=== PATIENT | female | born 1945 | race Caucasian/White ===

== ENCOUNTER 2025-01-06 11:09 | Outpatient (AMB) | payer MEDICARE, SELFPAY ==
--- OUTSIDE RECORDS SUMMARY | 2025-01-06 12:30 | XMS_ITS | Clinical Summary ---
Author Organization [facility] Address [address] [place] [address] Care Team Providers Care It Analyst Name Role Phone Unavailable Primary Care Provider Unavailabl e Surgical History Surgery Date Site/Laterality Comments CHOLECYSTECTOMY 03/23/2014 PROCEDURE: LAPAROSCOPY, CHOLECYSTECTOMY; COMMENT: Pierce-Genaro KNEE ARTHROSCOPY PROCEDURE: NM ARTHROSCOPY KNEE DIAGNOSTIC W/WO SYNOVIAL BX SPX Family History Medical History Relation Name Comments Other: Other Daughter 3 daughters Stomach cancer Father Stroke Father Parkinson's Disease Mother Other: Other Son 1 son Relation Name Status Comments Daughter Alive Father Mother Son Alive Social History Tobacco Use Types Packs/Day Years Used Date Smoking Tobacco: Never Smokeless Tobacco: Never Alcohol Use Standard Drinks/Week Comments Yes 0 (1 standard drink = 0.6 oz pur e alcohol) Comments Unknown Sex and Gender Information Value Date Recorded Sex Assigned at Not on file Legal Sex Female 3:52 PM EST Gender Identity Not on file Sexual Orientation Not on file Obstetrics History Plan of Treatment Health Maintenance Due Date Last Done Comments Diabetes: Annual GFR (Glomerular Filtration Rate) 1946 Diabetes: Annual Foot Exam 1956 Diabetes: Annual Retina Eye Exam 1956 Pneumococcal Vaccine: 50+ Years (1 of 1 - PCV) 1996 RSV Immunization Adult Patients (1 - 1-dose 75+ series) 2021 Cholesterol Screening (Lipid Panel) 04/13/2022 Falls Risk Assessment 04/13/2022 Hepatitis C Screening 04/13/2022 Osteoporosis Screening (Bone Density Screening) 04/13/2022 Social Influencers of Health Screening 04/13/2022 Diabetes: Annual Urine Albumin-Creatinine Ratio (uACR) 04/21/2022 Diabetes: Blood Sugar Contro l Test (HGBA1C) 04/21/2022 Hypertension/CHF/CAD Annual BMP Blood Test 04/21/2022 COVID-19 Vaccine (1 - 2023-2 5 season) 2024 Depression Screening 05/15/2024 Influenza Vaccine (#1) 2025 12/31/2019 DTaP,Tdap,and Td Vaccines (2 - Td or Tdap) 10/14/2027 10/13/2017 Zoster Vaccines Completed 05/01/2019, 07/30/2018 HIB Vaccines Aged Out No longer eligi ble based on patient's age to complete this topic HPV Vaccines Aged Out No longer eligi ble based on patient's age to complete this topic Hepatitis A Vaccines Aged Out No long er eligible based on patient's age to complete this topic Hepatitis B Vaccines Aged Out No long er eligible based on patient's age to complete this topic IPV Vaccines Aged Out No longer eligi ble based on patient's age to complete this topic MMR Vaccines Aged Out No longer eligi ble based on patient's age to complete this topic Meningococcal ACWY Vaccine Aged Out N o longer eligible based on patient's age to complete this topic Meningococcal B Vaccine Aged Out No l onger eligible based on patient's age to complete this topic RSV Immunization Patients Under 20 months Aged Out No longer eligible b ased on patient's age to complete this topic Varicella Vaccines Aged Out No longer eligible based on patient's age to complete this topic
== END 2025-01-06 15:19 | disposition home or self-care (01) ==
LOC: HO.HMGAL 11:09
PROVIDERS: PCP Internal Medicine; Visit Provider Registered Nurse Emergency
DX: J30.89 Other allergic rhinitis (principal)
CPT/HCPCS: 95117; 95165

== ENCOUNTER 2025-01-22 09:46 | Outpatient (AMB) | payer MEDICARE, SELFPAY | END 2025-01-22 09:50 | disposition home or self-care (01) | LOC: HO.HMGAL 09:46 | PROVIDERS: PCP Internal Medicine; Visit Provider Registered Nurse Emergency | DX: J30.89 Other allergic rhinitis (principal) | CPT/HCPCS: 95117; 95165 ==

== ENCOUNTER 2025-02-19 11:14 | Outpatient (AMB) | payer MEDICARE, SELFPAY | END 2025-02-19 11:14 | disposition home or self-care (01) | LOC: HO.HMGAL 11:14 | PROVIDERS: PCP Internal Medicine Sports Medicine; Visit Provider Registered Nurse Emergency | DX: J30.89 Other allergic rhinitis (principal) | CPT/HCPCS: 95117; 95165 ==

== ENCOUNTER 2025-03-05 09:48 | Outpatient (AMB) | payer MEDICARE, SELFPAY ==
--- OUTSIDE RECORDS SUMMARY | 2025-03-05 11:36 | XMS_ITS | Clinical Summary ---
Author Organization [facility] Address [address] [place] [address] Care Team Providers Care Junior Engineer Name Role Phone Unavailable Primary Care Provider Unavailabl e Surgical History Surgery Date Site/Laterality Comments CHOLECYSTECTOMY 03/23/2014 PROCEDURE: LAPAROSCOPY, CHOLECYSTECTOMY; COMMENT: Radha KNEE ARTHROSCOPY [id number] PROCEDURE: ME ARTHROSCOPY KNEE DIAGNOSTIC W/WO SYNOVIAL BX SPX [...] Health Maintenance Due Date Last Done Comments Pneumococcal Vaccine: 50+ Years (1 of 1 - PCV) 1996 RSV Immunization Adult Patients (1 - 1-dose 75+ series) 2021 Depression Screening 05/15/2024 COVID-19 Vaccine ( - 2023-2 5 season) 2025 Influenza Vaccine (#1) 2025 12/31/2019 DTaP,Tdap,and Td [...]
== END 2025-03-05 09:49 | disposition home or self-care (01) ==
LOC: HO.HMGAL 09:48
PROVIDERS: PCP Internal Medicine Sports Medicine; Visit Provider Registered Nurse Emergency
DX: J30.89 Other allergic rhinitis (principal)
CPT/HCPCS: 95117; 95165

== ENCOUNTER 2025-04-02 09:46 | Outpatient (AMB) | payer MEDICARE, SELFPAY ==
--- OUTSIDE RECORDS SUMMARY | 2025-04-02 18:06 | XMS_ITS | Clinical Summary ---
Author Organization [facility] Address [address] [place] [address] Care Team Providers Care Delivery Table Feeder Name Role Phone Unavailable Primary Care Provider Unavailabl e Surgical History Surgery Date Site/Laterality Comments CHOLECYSTECTOMY 03/23/2014 PROCEDURE: LAPAROSCOPY, CHOLECYSTECTOMY; COMMENT: Radha KNEE ARTHROSCOPY [id number] PROCEDURE: DC ARTHROSCOPY KNEE DIAGNOSTIC W/WO SYNOVIAL BX SPX [...] Depression Screening 05/15/2024 COVID-19 Vaccine ( - 2024-2 6 season) 2025 Influenza Vaccine (#1) 2025 12/31/2019 [...]
== END 2025-04-02 09:46 | disposition home or self-care (01) ==
LOC: HO.HMGAL 09:46
PROVIDERS: PCP Internal Medicine Sports Medicine; Visit Provider Registered Nurse Emergency
DX: J30.89 Other allergic rhinitis (principal)
CPT/HCPCS: 95117; 95165